=== PATIENT | female | born 1975 | race Caucasian/White ===

== ENCOUNTER → 2018-03-09 15:39 | Outpatient (CLI) | payer OTHER, SELFPAY ==
[2018-03-09 17:37] LABS: Hemoglobin 13.1 g/dl (12.0-15.0); Mean Corp Hgb Conc 32.8 g/gl (32-36); Mean Corpuscular Hgb 29.4 pg (27.0-32.0); Mean Corpuscular Volume 89.9 fL (81-99); Mean Platelet Vol. 9.2 fl (6.2-12.0); Platelet Count 307 K/mm3 (150-450); RBC Distribution Width CV 13.3 % (11.6-14.6); RBC Distribution Width SD 43.4 fl (35.1-43.9); Red Blood Count 4.45 M/mm3 (4.2-5.4); Scan Indicated on CBC? Y/N NO; White Blood Count 8.3 K/mm3 (4.4-11.0)
[2018-03-09 18:01] LABS: Thyroid Stim Hormone (TSH) 1.52 uIU/mL (0.358-3.74)
[2018-03-11 13:45] LABS: Thyroid Peroxidase AB 18 IU/mL (0-34)
== END ==
PROVIDERS: Visit Provider Obstetrics & Gynecology
DX: R63.5 Abnormal weight gain (principal); R61 Generalized hyperhidrosis; N92.6 Irregular menstruation, unspecified
CPT/HCPCS: 36415; 84443; 85027; 86376

== ENCOUNTER → 2020-05-01 | Outpatient (CLI) | payer OTHER, SELFPAY ==
[2020-05-07 20:08] LABS: HPV APTIMA, High Risk Negative (Negative)
== END | disposition home or self-care (01) ==
LOC: LABSPEC 05-02 09:27
PROVIDERS: Visit Provider Student in an Organized Health Care Education/Training Program
DX: Z12.4 Encounter for screening for malignant neoplasm of cervix (principal)
CPT/HCPCS: 87624; 88175; G0145

== ENCOUNTER 2020-08-27 08:24 | Outpatient (RCR) | payer OTHER, SELFPAY | END 2020-09-05 23:59 | LOC: NS 08:24 | PROVIDERS: Visit Provider Student in an Organized Health Care Education/Training Program | DX: Z71.3 Dietary counseling and surveillance (principal); E66.3 Overweight; Z68.27 Body mass index [BMI] 27.0-27.9, adult | CPT/HCPCS: 97802 ==

== ENCOUNTER 2020-09-24 16:30 | Outpatient (RCR) | payer OTHER, SELFPAY | END 2020-10-05 23:59 | LOC: NS 16:30 | PROVIDERS: Visit Provider Student in an Organized Health Care Education/Training Program | DX: Z71.3 Dietary counseling and surveillance (principal); E66.3 Overweight; Z68.27 Body mass index [BMI] 27.0-27.9, adult | CPT/HCPCS: 97803 ==

== ENCOUNTER 2020-10-30 09:00 | Outpatient (RCR) | payer OTHER, SELFPAY | END 2020-11-05 23:59 | LOC: NS 09:00 | PROVIDERS: Visit Provider Student in an Organized Health Care Education/Training Program | DX: Z71.3 Dietary counseling and surveillance (principal); E66.3 Overweight; Z68.27 Body mass index [BMI] 27.0-27.9, adult | CPT/HCPCS: 97803 ==

== ENCOUNTER 2020-12-04 16:00 | Outpatient (RCR) | payer OTHER, SELFPAY | END 2020-12-05 23:59 | LOC: NS 16:00 | PROVIDERS: Visit Provider Student in an Organized Health Care Education/Training Program | DX: Z71.3 Dietary counseling and surveillance (principal); E66.3 Overweight; Z68.27 Body mass index [BMI] 27.0-27.9, adult | CPT/HCPCS: 97803 ==

== ENCOUNTER 2021-01-15 08:57 | Outpatient (RCR) | payer OTHER, SELFPAY | END 2021-02-05 23:59 | LOC: NS 08:57 | PROVIDERS: Visit Provider Student in an Organized Health Care Education/Training Program | DX: Z71.3 Dietary counseling and surveillance (principal); E66.3 Overweight; Z68.27 Body mass index [BMI] 27.0-27.9, adult | CPT/HCPCS: 97803 ==

== ENCOUNTER 2021-02-19 16:55 | Outpatient (RCR) | payer OTHER, SELFPAY | END 2021-02-19 23:59 | disposition home or self-care (01) | LOC: NS 16:55 | PROVIDERS: Visit Provider Student in an Organized Health Care Education/Training Program | DX: Z71.3 Dietary counseling and surveillance (principal); E66.3 Overweight; Z68.27 Body mass index [BMI] 27.0-27.9, adult | CPT/HCPCS: 97803 ==

== ENCOUNTER 2021-08-22 08:14 | Outpatient (CLI) | payer OTHER, SELFPAY ==
--- NOTE | 2021-08-22 08:17 | BI_ITS ---
MAMMOGRAPHY - BILATERAL SCREENING 3-D TOMOSYNTHESIS REASON FOR EXAM: Female, 46 years old. screening mammogram PERTINENT HISTORY: No significant family history. TECHNIQUE: 2-D mammograms and 3-D Tomosynthesis of the breast (s) were performed. CAD was performed. COMPARISON: 05/27/2019 FINDINGS: The breast composition is heterogeneously dense that can obscure small breast masses. Scattered benign calcifications are seen. No dense spiculated masses or suspicious microcalcifications are identified. No architectural distortion is identified. There is no skin thickening or retraction. There has been no significant change since the prior study. BI/SCRN MAMM (CAD)W/RAMOS BILAT IMPRESSION: No mammographic signs of malignancy. Routine yearly mammograms recommended. ASSESSMENT CATEGORY: BIRADS Category 1: Negative. A letter regarding these results will be sent to the patient by the facility within 30 days. FOLLOW UP RECOMMENDATION: Yearly follow up mammogram recommended. (A) Approximately 10% of breast cancers are not detected by mammography. A normal mammogram should not delay biopsy of a clinically suspicious abnormality. Electronically Signed: Maury Young MD at 10:36 EDT ,
== END 2021-08-22 23:59 | disposition home or self-care (01) ==
LOC: OPBI 08:15
PROVIDERS: PCP Family Medicine; Visit Provider Obstetrics & Gynecology
DX: Z12.31 Encounter for screening mammogram for malignant neoplasm of breast (principal); R92.1 Mammographic calcification found on diagnostic imaging of breast
CPT/HCPCS: 77063; 77067

== ENCOUNTER → 2022-01-15 | Outpatient (CLI) | payer OTHER, SELFPAY ==
--- NOTE | 2022-01-15 15:44 | US_ITS ---
STUDY: ULTRASOUND OF THE FEMALE PELVIS - COMPLETE REASON FOR EXAM: Female, 46 years old. AUB LMP: 01/05/2022. TECHNIQUE: Transabdominal and Transvaginal TECHNICAL QUALITY: Adequate. COMPARISON: None. FINDINGS: The uterus is retroverted and is in a midline position. The uterus measures 9.8 cm x 6.4 cm x 5.0 cm. Normal uterine cervix. The endometrium is thickened and measures 20 mm in thickness, and is heterogeneous (striated). The endometrium is thickened and irregular. Underlying polyp should be ruled out. There is no demonstrated endometrial mass. There is no demonstrated myometrial mass. I.U.D. - The patient does not have an I.U.D. The right ovary is visualized. The right ovary measures 3.5 cm x 2.2 cm x 2.5 cm. Multiple follicles are seen. The largest measures 1.3 cm x 1.1 cm x 1.1 cm. There is no visualized right adnexal mass or complex lesion. There is normal arterial and normal venous vascularity. The left ovary is visualized. The left ovary measures 2.9 cm x 2.5 cm x 1.4 cm. Follicles are seen within the ovary. There is no visualized left adnexal mass or complex lesion. There is normal arterial and normal venous vascularity. There is minimal fluid in the cul-de-sac. The pre void volume of the bladder was 340 ml. US/Transvaginal Non- IMPRESSION: Heterogeneous appearance of the uterus with a heterogeneous thickening of the endometrium as described. Endometrial polyps should be ruled out. Follicles are seen in both ovaries. Electronically Signed: Kody Rock MD at 9:11 EDT ,
--- NOTE | 2022-01-15 15:44 | US_ITS ---
STUDY: ULTRASOUND OF THE FEMALE PELVIS - COMPLETE REASON FOR EXAM: Female, 46 years old. AUB LMP: 01/05/2022. TECHNIQUE: Transabdominal and Transvaginal TECHNICAL QUALITY: Adequate. COMPARISON: None. FINDINGS: The uterus is retroverted and is in a midline position. The uterus measures 9.8 cm x 6.4 cm x 5.0 cm. Normal uterine cervix. The endometrium is thickened and measures 20 mm in thickness, and is heterogeneous (striated). The endometrium is thickened and irregular. Underlying polyp should be ruled out. There is no demonstrated endometrial mass. There is no demonstrated myometrial mass. I.U.D. - The patient does not have an I.U.D. The right ovary is visualized. The right ovary measures 3.5 cm x 2.2 cm x 2.5 cm. Multiple follicles are seen. The largest measures 1.3 cm x 1.1 cm x 1.1 cm. There is no visualized right adnexal mass or complex lesion. There is normal arterial and normal venous vascularity. The left ovary is visualized. The left ovary measures 2.9 cm x 2.5 cm x 1.4 cm. Follicles are seen within the ovary. There is no visualized left adnexal mass or complex lesion. There is normal arterial and normal venous vascularity. There is minimal fluid in the cul-de-sac. The pre void volume of the bladder was 340 ml. US/Pelvic (Non ) IMPRESSION: Heterogeneous appearance of the uterus with a heterogeneous thickening of the endometrium as described. Endometrial polyps should be ruled out. Follicles are seen in both ovaries. Electronically Signed: Kody Rock MD at 9:11 EDT ,
== END | disposition home or self-care (01) ==
LOC: US 15:43
PROVIDERS: PCP Family Medicine; Referring Provider Obstetrics & Gynecology; Visit Provider Obstetrics & Gynecology
DX: N93.9 Abnormal uterine and vaginal bleeding, unspecified (principal)
CPT/HCPCS: 76830; 76856

== ENCOUNTER 2022-03-04 09:45 | Day surgery (SDC) | payer OTHER, SELFPAY ==
[2022-03-04] VITALS (7 sets, daily range): BP systolic 95–114; BP diastolic 59–88; PULSE 60–81; RESP 15–18; TEMP 36.1–36.9; O2SAT 97–100; BMI 28.8
[2022-03-04] MEDS: Lactated Ringers 1,000 ML 15 ML IV (10:53)
[2022-03-04 11:01] LABS: Hematocrit 37.9 % (37-47); Hemoglobin 12.1 g/dL (12.0-15.0); Mean Corp Hgb Conc 31.9 g/dL (32-36); Mean Corpuscular Hgb 28.4 pg (27.0-32.0); Mean Platelet Vol. 8.7 fl (6.2-12.0); Platelet Count 309 K/mm3 (150-450); RBC Distribution Width CV 13.5 % (11.6-14.6); RBC Distribution Width SD 44.2 fl (35.1-43.9); Red Blood Count 4.26 M/mm3 (4.2-5.4); White Blood Count 8.4 K/mm3 (4.4-11.0)
--- NOTE | 2022-03-04 11:02 | PCM.HP.BLA ---
History and Physical Date of Admission: 03/04/22 [facility] [address] [place] [address] OFFICE VISIT Date of Service:? 01/08/22 MR#: [id number] Acct: [id number] Name:JB FIGUEROA Rep #: [id number] : 1975 ? ? Provider: Dr. Mable Eduardo, DO Age/Sex:? 46/F ? ? Location: [facility] [place] Status: Signed Intake Vital Signs ? 01/08/2213:59 01/08/2213:59 Height 5 ft 5 ft Weight: 144 lb 6 oz ? BMI 28.2 ? BP 123/85 H ? 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: No Is patient in pain?: No Allergies erythromycin base Adverse Reaction (Verified 01/08/22 13:59) vomitingPenicillins Adverse Reaction (Verified 01/08/22 13:59) hives Medications eflornithine 13.9 % topical cream (Vaniqa) 1 applic topical BID #45 grams 08/14/21 [Rx Confirmed 01/08/22] metformin 500 mg tablet 1,000 mg PO DAILY 08/14/21 [History Confirmed 01/08/22] metformin 500 mg tablet 500 mg PO TID 30 days #90 tabs 08/14/21 [Rx Confirmed 01/08/22] spironolactone 50 mg tablet 50 mg PO DAILY 90 days #90 tabs 08/14/21 [Rx Confirmed 01/08/22] norgestimate 0.25 mg-ethinyl estradiol 35 mcg tablet (Sprintec (28)) 1 tab PO DAILY 30 days #30 tabs 01/08/22 [Rx Confirmed 01/08/22] Post menopausal: No Patient : No : No PFSH Social History? Smoking Status:? Never smoker alcohol intake:? never substance use type:? does not use caffeine:? No what type of physical activity do you participate in:? none seatbelt use:? always do you feel safe at home:? Yes additional social history:? - Nick HPI discuss transition into menopause Details: JB MANSFIELD is a 46 year old who presents for discussion about hot flashes and menopause transition.? She states that since she was seen in August she has developed moderate to severe hot flashes and has also had persistent menses for the last 13 days.? She is not taking control and the last time we discussed was not interested in this however now she has taken this into consideration based on her current symptoms.? She denies history of hypertension blood clots or migraines with aura.? Her blood pressure in the office today is slightly elevated with a systolic of 130 and diastolic of 89.? She is followed by her PCP and states has had cholesterol testing and is up-to-date on her annual exams.? She explains the hot flashes is starting from her head and descending to her toes and occurring multiple times during the day. Pregancy History ? ? ? 4 ? Elective abortions ? Hx Para ? ? ? 3 ? Spontaneous abortions ? ? ? 1 Hx # Term Pregnancies ? Ectopic pregnancies ? Hx # Pregnancies ? Multiple births ? # of living children ? ? ? 3 Past Pregnancies Del. Date Name GA/Weeks Outcome Route Bth Weight Infant Gen Labor Lgth Anesthesia Del Locatn Provider FOB Unknown Hazelyn ? Unknown Doralice ? Unknown Clark ? ROS Const ROS Unobtainable: All systems reviewed & are unremarkable except as noted in H Resp Resp: Reports system reviewed and no additional complaints, except as documented; Denies cough GI GI: Reports as per HPI Psych Psych: Reports system reviewed and no additional complaints, except as documented Exam Const General: cooperative, healthy appearing, comfortable and no acute distress Resp Effort & Inspection: normal respiratory effort Skin General: no rashes or lesions noted Psych Appearance: grossly normal Speech and Movement: speech and movement normal Coding Level of Care Code Off vis,est,level 4 Diagnoses Female climacteric state? N95.1 Abnormal uterine bleeding? N93.9 PCOS (polycystic ovarian syndrome)? E28.2 Assessment and Plan Assessment and Plan (1) Female climacteric state: ?Status:?Acute (2) Abnormal uterine bleeding: ?Status:?Acute (3) PCOS (polycystic ovarian syndrome): ?Status:?Acute ? ? ? Orders: Orders Pelvic (Non ) Today N93.9 - Abnormal uterine and vaginal bleeding, unspecified ? Transvaginal Non- Today N93.9 - Abnormal uterine and vaginal bleeding, unspecified ? Medications: New norgestimate-ethinyl estradiol 0.25-35 mg-mcg (Sprintec (28)) 1 TAB? PO DAILY 30 days 30 tabs 12RF ? ? Plan Plan to start with a pelvic ultrasound to rule out polyp or thickened endometrium.? She is interested in combination hormonal therapy to help both with hot flashes and abnormal bleeding.? The risks benefits and alternatives were discussed with the patient.? This includes blood clots stroke and breast lumps.? Since she is still menstruating I believe that she should benefit from a daily continuous OCP however if bleeding does not stop we will try Aygestin or Megace based on results of the ultrasound. update on plan, plan is to proceed with hysteroscopy D&C to remove possible polyp, place an IUD and start estrogen patch post op for menopause relief. UPDATE- I have seen the patient and performed any clinically relevant updates to the history and physical exam. Mable Eduardo, DO
--- NOTE | 2022-03-04 11:03 | DCINST_ITS ---
Discharge Instructions Diet Discharge Diet: No restrictions Activity Discharge Activity: Return to Normal Activity, May Shower and May Take a Tub Bath (after 1 week) May resume sexual activity in: 1-2 weeks Weight Bearing Status: Weight bearing as tolerated Lifting Restrictions: none Dressing / Incision Call your doctor if you observe: Fever of 101 or Higher, Using more than 1 pad per hour, Shortness of breath and Uncontrolled pain Follow Up Care Please Follow Up With: Mable Eduardo DO When: Call [phone] to schedule appointment. Test Results: Test results from this visit will be discussed in further detail at your follow- up appointment, if applicable. Discharge Plan Admission Primary Reason for Your Visit: hysteroscopy dilation and curettage, placement of mirena IUD Attending Provider: Mable Eduardo Primary Care Provider: Yvon Azevedo Discharge Orders/Prescriptions Prescriptions: New ibuprofen 800 mg tablet 800 mg PO Q8H PRN (Reason: pain) 7 Days Qty: 30 0RF oxycodone-acetaminophen [Percocet] 5-325 mg tablet 1 tab PO Q4H PRN (Reason: pain) 7 Days Qty: 10 0RF Continued metformin 500 mg tablet 500 mg PO TID 30 Days Qty: 90 12RF spironolactone 50 mg tablet 50 mg PO DAILY 90 Days Qty: 90 4RF Discontinued norgestimate-ethinyl estradiol [Sprintec (28)] 0.25-35 mg-mcg tablet 1 tab PO DAILY 30 Days Qty: 30 12RF Referrals / Follow Up: Yvon Azevedo DO [Primary Care Provider] - Disposition Disposition (needs filled in before D/C Order can be placed): Home, Self Care
[2022-03-04 11:07] LABS: Internal QC Validated? YES +Cl - CLEAR BKGD; Pregnancy, Urine Negative Negative
--- NOTE | 2022-03-04 11:15 | EMB_PTH ---
PATIENT: JB BOOGIE LOC: [facility] [place] U#:[id number] AGE/SX: 47/F ROOM: RE03/04/[address]: Dr. Mable Eduardo DO : 1975 BED: DIS: 03/04/2022 SPEC #: [id number] RECD: 03/04/22 14:13 STATUS: KJ SANTA #: [id number] HEIDI: 03/04/22 11:[address]: Mable Eduardo DEPT: SURGICAL PATHOLOGY RECD BY: Christy Roberts ENTERED: 03/05/22 08:03 SP TYPE: ENDOM BX/C PAULHR DR: Dr. Yvon Azevedo DO Tissues: Endometrium, NOS Procedures: Surgery Specimen Level IV HEADER OPERATION: Hysteroscopy, D & C Symphion, resection of uterine polyp, Mirena PRE-OP DIAGNOSIS: Female climacteric state, abnormal uterine bleeding, PCOS TISSUE SUBMITTED: Endometrial curettings MICROSCOPIC DIAGNOSIS Endometrium, curettings: Disordered proliferative endometrium. Chronic endometritis. Rare strips of benign superficial endocervix. AM:charles 03/06/2022 MICROSCOPIC DESCRIPTION Slides are reviewed. GROSS DESCRIPTION Received in fixative is one container labeled with the patient's name and designated endometrial curettings. The specimen consists of multiple fragments of hernandez-pink to hemorrhagic soft tissue that in aggregate measure 5 x 3 x 0.3 cm. The specimen is totally submitted in two cassettes. / SALAZAR:charles 03/05/2022 TC:3 CPT: 74430
[2022-03-04] MEDS: Lidocaine 1% (20 ml mdv) 20 ML Vial (11:40)
--- NOTE | 2022-03-04 13:55 | PCM.OP.BLANK ---
Operative Report Date of Procedure: 03/04/22 preoperative diagnosis:menorrhagia, thickened endometrium Postoperative diagnosis:menorrhagia, thickened endometrium Surgeon: Dr. Mable Eduardo DO surgery: hysteroscopy, syphion dilation and curettage, placement of mirena IUD EBL: minimal urine output: 30cc findings: atrophic appearing uterus specimens removed: endometrial curettings Details of the procedure: Patient was prepped and draped in a normal sterile fashion under MAC anesthesia. A weighted speculum was placed in the vagina and the anterior lip of the cervix was grasped with a single-tooth tenaculum. A paracervical block was placed with 1% lidocaine. Cervix was progressively dilated to allow passage of a 5 mm hysteroscope. The lining was fully visualized and noted to have an atrophic appearing lining . Uterine sounded to 10 cm. Curettage was performed using the syphion device and specimen was sent to pathology. The mirena IUD was inserted to the fundus and the strings were trimmed at 3 cm from the cervix. All instruments were removed from the vagina and excellent hemostasis was noted. Patient was awoken and taken to recovery in stable condition. Multi Select Codes Urinary/Genital Urinary/Genital CPT Codes: 45129 Hysteroscopy,EMC, Polypectomy and Other Procedure See Report (placement of mirena IUD )
== END 2022-03-04 13:11 | disposition home or self-care (01) ==
LOC: SDC 09:47 → AC 09:48
PROVIDERS: PCP Family Medicine; Referring Provider Obstetrics & Gynecology; Visit Provider Obstetrics & Gynecology
PROC: 0UB98ZZ Excision of Uterus, Via Natural or Artificial Opening Endoscopic (ICD-10-PCS; CPT 58558; principal; 2022-03-04 11:00)
DX: N71.1 Chronic inflammatory disease of uterus (principal); Z30.430 Encounter for insertion of intrauterine contraceptive device; N85.8 Other specified noninflammatory disorders of uterus; E28.2 Polycystic ovarian syndrome; Z79.899 Other long term (current) drug therapy
CPT/HCPCS: 58558; 58300; 81025; 85027; 88305; J7120; J2405

== ENCOUNTER 2022-04-07 15:51 | Outpatient (CLI) | payer OTHER, SELFPAY ==
--- NOTE | 2022-04-07 15:52 | US_ITS ---
INDICATION: check placement of IUD EXAMINATION: Ultrasound US Pelvis Non-OB Complete TECHNIQUE: Transabdominal and transvaginal pelvic ultrasound was performed. Grayscale, spectral waveform, and color flow Doppler evaluation of the adnexa. COMPARISON: Ultrasound pelvis 01/15/2022. FINDINGS: UTERUS: Retroverted. The uterus measures 10.3 x 7.1 x 5.8 cm. There is no uterine mass. The endometrial stripe measures 4 mm in AP diameter which is within normal limits. Nabothian cysts. Intrauterine device in place. RIGHT OVARY: Non-enlarged, normal echogenicity. There is normal arterial inflow and venous outflow present in the right ovary. Echogenic focus adjacent to right ovary, may represent calcification. LEFT OVARY: Multiple prominent follicles in the left ovary measuring up to 2.3 cm. Non-enlarged, normal echogenicity. There is normal arterial inflow and venous outflow present in the left ovary. FREE FLUID: None. US/Transvaginal Non- IMPRESSION: Intrauterine device in position. Electronically Signed: Fransisco Hoang MD at 4:32 EDT ,
--- NOTE | 2022-04-07 15:52 | US_ITS ---
INDICATION: check placement of IUD EXAMINATION: Ultrasound US Pelvis Non-OB Complete TECHNIQUE: Transabdominal and transvaginal pelvic ultrasound was performed. Grayscale, spectral waveform, and color flow Doppler evaluation of the adnexa. COMPARISON: Ultrasound pelvis 01/15/2022. FINDINGS: UTERUS: Retroverted. The uterus measures 10.3 x 7.1 x 5.8 cm. There is no uterine mass. The endometrial stripe measures 4 mm in AP diameter which is within normal limits. Nabothian cysts. Intrauterine device in place. RIGHT OVARY: Non-enlarged, normal echogenicity. There is normal arterial inflow and venous outflow present in the right ovary. Echogenic focus adjacent to right ovary, may represent calcification. LEFT OVARY: Multiple prominent follicles in the left ovary measuring up to 2.3 cm. Non-enlarged, normal echogenicity. There is normal arterial inflow and venous outflow present in the left ovary. FREE FLUID: None. US/Pelvic (Non ) IMPRESSION: Intrauterine device in position. Electronically Signed: Fransisco Hoang MD at 4:32 EDT ,
== END 2022-04-07 23:59 | disposition home or self-care (01) ==
LOC: US 15:52
PROVIDERS: PCP Family Medicine; Referring Provider Obstetrics & Gynecology; Visit Provider Obstetrics & Gynecology
DX: Z30.431 Encounter for routine checking of intrauterine contraceptive device (principal); T83.32XA Displacement of intrauterine contraceptive device, initial encounter
CPT/HCPCS: 76830; 76856

== ENCOUNTER → 2022-05-20 | Outpatient (CLI) | payer OTHER, SELFPAY ==
[2022-05-20 14:38] LABS: Erythrocyte Sedimentation Rate 7 mm/hr (0-30)
[2022-05-20 14:40] LABS: Hematocrit 41.8 % (37-47); Hemoglobin 13.4 g/dL (12.0-15.0); Mean Corp Hgb Conc 32.1 g/dL (32-36); Mean Corpuscular Volume 87.4 fL (81-99); Mean Platelet Vol. 8.5 fl (6.2-12.0); Platelet Count 320 K/mm3 (150-450); RBC Distribution Width CV 13.8 % (11.6-14.6); RBC Distribution Width SD 43.9 fl (35.1-43.9); Red Blood Count 4.78 M/mm3 (4.2-5.4); White Blood Count 8.9 K/mm3 (4.4-11.0)
[2022-05-20 15:41] LABS: CRP < 2.90 mg/L (0.0-3.0); Rheumatoid Factor < 10.0 IU/mL (<15); Uric Acid 4.7 mg/dL (2.6-6.0)
[2022-05-23 10:12] LABS: ANTINUCLEAR ANTIBODIES DIRECT Negative (Negative)
== END | disposition home or self-care (01) ==
LOC: LAB 14:02
PROVIDERS: PCP Family Medicine; Referring Provider Orthopaedic Surgery Hand Surgery; Visit Provider Orthopaedic Surgery Hand Surgery
DX: G56.03 Carpal tunnel syndrome, bilateral upper limbs (principal)
CPT/HCPCS: 36415; 84550; 85027; 85652; 86038; 86140; 86431

== ENCOUNTER → 2022-08-28 | Outpatient (CLI) | payer OTHER, SELFPAY ==
--- NOTE | 2022-08-28 08:22 | BI_ITS ---
MAMMOGRAPHY - BILATERAL SCREENING REASON FOR EXAM: Female, 47 years old. Routine annual screening examination. PERTINENT HISTORY: Grandmother with breast cancer. TECHNIQUE: Digital bilateral breast ramos (3D mammographic acquisition) in the CC and MLO projections. 2-D mediolateral oblique (MLO) and craniocaudad (CC) views of both breasts were obtained. CAD: Full Field Digital Mammography with Computer Added Detection was performed. COMPARISON: Comparison is made with prior study dated August 22, 2021. FINDINGS: Breast Composition: There are scattered areas of fibroglandular density. There are no dominant masses or suspicious calcifications. No other significant abnormalities are identified. There has been no significant change since the prior study. BI/SCRN MAMM (CAD)W/RAMOS BILAT IMPRESSION: Stable bilateral screening mammogram. Yearly follow-up mammogram recommended. (A) ASSESSMENT CATEGORY: BIRADS Category 1: Negative. A letter regarding these results will be sent to the patient by the facility within 30 days. Approximately 10% of breast cancers are not detected by mammography. A normal mammogram should not delay biopsy of a clinically suspicious abnormality. [id number] Electronically Signed: Kody Rock MD at 9:46 EDT ,
== END | disposition home or self-care (01) ==
LOC: OPBI 08:19
PROVIDERS: PCP Family Medicine; Visit Provider Obstetrics & Gynecology
DX: Z12.31 Encounter for screening mammogram for malignant neoplasm of breast (principal)
CPT/HCPCS: 77063; 77067

== ENCOUNTER 2022-10-03 07:30 | Outpatient (RCR) | payer OTHER, SELFPAY ==
--- NOTE | 2022-09-03 08:25 | HP.PTEVAL_ITS ---
Patient's Visit Information JB MANSFIELD is a 47 year old F referred to Physical Therapy by Dr. Fransisco Rojas MD with a diagnosis of Left Hip Bursitis. Date of Evaluation: 09/03/22 Physical Therapist: Jackelyn Bowling DPT - Visit Plan Frequency: 2x /Week Duration: 4 Weeks Plan: Posterior Chain Strengthening, ITBand and Hamstring Roll Out, Ultrasound as modality of choice. HEP Given IE: Bridge, hamstring stretch, piriformis, clams, prone hip extension with bent knee - Subjective Patient reports that she fell in June of last year and has had 3 occurrences of hip bursitis since then, this time it has not gone away. The first time she had an injection- the second it went away mostly and then in June she was taking a walk and it flared and now won't go away. Any time she tries to strengthen the hip it flares. She can't walk more than 3 miles at this point. She went to [facility]- last year she had x-rays which looked okay, she did not have an injection this time and did PT this time. Did not do PT last time. Normally she is just a walker for exercise- 3-4 miles 2-3x a week between stroll and good pace. 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 Pain is located on the lateral hip- it radiates down the posterior thigh and wraps around the back of the knee. It feel tight and a band that tight inside the leg. No pain past the knee- no back pain. No N/T. Describes the pain as achy- sharp if she is sta nding. Worst: 12/15 Agg: sitting to standing and back in June any time laying on her left side, Best: 07/18, Eases: ice and advil. She has tried hip abduction, clams, Figure 4 stretch- she does feel like they help but just not going away. Sleep: not she can lay on her on left side- feels like she is laying on a ball- not disturbed at this point. No issues with her hips prior to June. PMHx: PCOS Meds: metformin, spironolactone - Objective Posture: FH, RS- can correct but does not maintain in sitting. Gait: mild pelvic translation. Stairs: asc: recip without HR- no deviation noted- desc: recip no HR- moderately uncontrolled. HR/TR: able without UE A. SLS: 15 sec mild pelvic translation- does report more instability compared to right. ROM: Lumbar: WFL, Hip: WFL pain with Flexion to 120 degrees ER at end range, Knee/Ankle: WFL. Palpation: tender along insertion of gluts on the left, ITBand, lateral hamstrings. Strength: Core: fair, Hip: Flexion: 4/5 with pain, Extn: 4/5 with pain, Abd: 4-/5 with pain, IR: 4+/5 no pain, ER: 3+/5 with pain, Knee: Flexion: 4/5 with pain, Extn: 4+/5 no pain, Ankle: 5/5. Special Test: Pelvic Alignment: WFL, LLD: negative. Flex: HS: moderate, Gastroc: moderate, Piriformis: moderate - Special Tests L Hip Scour: Negative L Hip Quadrant - Intraarticular Pathology: Negative L Hip RAMESH - Intraarticular Pathology: Positive L Hip FADDIR - Labrum: Negative L Hip Impingement Provocation - Labrum: Negative L Hip Trendelenberg - Glut Medius: Positive L Hip Meg - IT Band: Positive - Balance/Special Test Scores Lower Extremity Functional Score: 57 - Goals Goal 1:: Patient will be I with HEP and progression Goal Time Frame: 4-6 Weeks Goal 2:: Patient will SLS without pelvic translation Goal Time Frame: 4-6 Weeks Goal 3:: Patient will maintain proper posture t/o tx session to demo increased core s/s Goal Time Frame: 4-6 Weeks Goal 4:: Patient will demo full AROM of the left hip without pain Goal Time Frame: 4-6 Weeks Goal 5:: Patient will report 80% improvement Goal Time Frame: 4-6 Weeks - Rehabilitation Potential Physical Therapy Diagnosis: Patient presents with hypomobility- she has decreased LE and core strength/stabilization, pain free ROM, proprioception, flex and muscular endurance leading to decreased posture and increased pain with ADL's Rehabilitation Potential: Good - Anticipated Interventions Patient/Client Instruction: Educate patient on: Benefits of Fitness Program Therapeutic Exercise to Include: Strength training, Endurance training, Balance training, Coordination, Agility training, Body mechanics, Postural training, Flexibilty training, Gait and locomotor training, Neuromotor development, Dynamic Lumbar Stabilization, Scapular Strength/Stabilization For the Purpose of:: To improve muscle performance and motor function Manual Therapy Techniques to Include: Soft tissue mobilization For the Purpose of:: To increase oxygenation perfusion TENS: Yes Cryotherapy (ice pack, ice massage): Yes Thermo therapy (hot pack): Yes Ultrasound (thermal/non thermal): Yes For the Purpose of:: To improve nutrient delivery to tissue Thank you for the opportunity to evaluate your patient. For Medicare and Medicare HMO plans, please review the plan of care and approve it. It will need to be FAXED BACK to us at [phone] for Medicare purposes. For Medicare only, by signing this I certify the plan of care. Please let me know if there are questions or concerns regarding this plan of care. Physician Signature: Date:
--- NOTE | 2022-10-03 08:30 | HP.PTDCSUM ---
It has been my pleasure to treat JB MANSFIELD referred by Dr. Fransisco Rojas MD, with the diagnosis of Left Hip Bursitis for a total of 11 visit(s). Discharge Date: Please see the following information for a summary of their discharge status. Subjective: Patient reports 80% improvement and that she feels she can continue the ex's on her own now. States she is happy with her progress and understands the importance of continuing the ex's. L hip Pain Intensity (Out of 10): 0 % Improvement: 80 Objective/Function: PATIENT WAS SEEN TODAY FOR RE-ASSESSMENT OF PROGRESS TOWARD THE SET PT GOALS AND THE NEED FOR FURTHER PHYSICAL THERAPY VS READINESS FOR DISCHARGE. UPON EXAM TODAY ALL GOALS HAVE BEEN MET AND PATIENT IS INDEP WITH A HEP. MILD L HIP EXTERNAL ROTATOR TIGHTNESS COMPARED TO LEFT EVIDENT WITH TESTING TODAY BUT INDEP WITH STRETCHING. Goal 1:: Patient will be I with HEP and progression Goal Progress: Goal Met Goal 2:: Patient will SLS without pelvic translation Goal Progress: Goal Met Goal 3:: Patient will maintain proper posture t/o tx session to demo increased core s/s Goal Progress: Goal Met Goal 4:: Patient will demo full AROM of the left hip without pain Goal Progress: Goal Met Goal 5:: Patient will report 80% improvement Goal Progress: Goal Met Plan: D/C TO INDEP EX. PATIENT AGREEABLE. If there are questions or concerns regarding this patient's physical therapy, please feel free to call me at [phone]. Thank you for the referral of this patient. Sincerely, Hannah Garcia, PT, Cert MDT Balance/Gait/Functional tests - Balance/Special Test Scores Lower Extremity Functional Score: 69
== END 2022-10-03 08:54 | disposition home or self-care (01) ==
LOC: PT 07:30
PROVIDERS: PCP Family Medicine; Referring Provider Orthopaedic Surgery; Visit Provider Orthopaedic Surgery
DX: M70.62 Trochanteric bursitis, left hip (principal)
CPT/HCPCS: 97110; 97162; 97164

== ENCOUNTER → 2022-12-20 | Outpatient (CLI) | payer OTHER, SELFPAY ==
--- NOTE | 2022-12-20 08:00 | MRI_ITS ---
EXAM: MR LEFT LOWER EXTREMITY WITHOUT INTRAVENOUS CONTRAST, HIP CLINICAL INDICATION: Hip pain TECHNIQUE: Multiplanar and multisequence MR images of the left hip without intravenous contrast. COMPARISON: No relevant prior studies available. FINDINGS: TENDONS: FLEXORS: Unremarkable. Intact. EXTENSORS/HAMSTRING: Unremarkable. Intact. ABDUCTORS: Unremarkable. Intact. ADDUCTORS: Unremarkable. Intact. ROTATORS: Unremarkable. Intact. MUSCLES: Unremarkable. Normal bulk and signal. FLUID: No joint effusion. No trochanteric bursitis. LABRUM: No evidence of a tear on this non-arthrogram exam. CARTILAGE: Unremarkable. Articular cartilage intact. BONES/JOINTS: Unremarkable. No femoral neck fracture. No avascular necrosis of the femoral head. No sacral insufficiency fracture. No suspicious bone marrow signal alteration. OTHER SOFT TISSUES: Unremarkable. MRI/Lower Ext Joint Only (Routine) IMPRESSION: Unremarkable MRI of the left hip. Electronically Signed: Sandi Bates MD at 23:55 EDT Reading Location ID and State: [id number] / Tel , Service support ,
== END | disposition home or self-care (01) ==
LOC: MRI 07:43
PROVIDERS: PCP Family Medicine; Referring Provider Orthopaedic Surgery; Visit Provider Orthopaedic Surgery
DX: M70.62 Trochanteric bursitis, left hip (principal)
CPT/HCPCS: 73721

== ENCOUNTER 2023-03-17 16:30 | Outpatient (RCR) | payer OTHER, SELFPAY ==
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
== END 2023-03-17 19:00 | disposition home or self-care (01) ==
LOC: PT 16:30
PROVIDERS: PCP Family Medicine; Referring Provider Physician Assistant Surgical; Visit Provider Physician Assistant Surgical
DX: M54.12 Radiculopathy, cervical region (principal); M70.62 Trochanteric bursitis, left hip
CPT/HCPCS: 97110; 97161; 97164; 97530

== ENCOUNTER 2023-05-14 06:55 | Day surgery (SDC) | payer OTHER, SELFPAY ==
[2023-05-14] VITALS (7 sets, daily range): BP systolic 93–132; BP diastolic 60–81; PULSE 70–94; RESP 16–18; TEMP 36.1–36.9; O2SAT 97–100; BMI 28.2
[2023-05-14 07:17] LABS: Internal QC Validated? YES +Cl - CLEAR BKGD; Pregnancy, Urine Negative Negative
[2023-05-14 07:19] LABS: Record Kit Lot#,Urine Preg HCG0000667200
[2023-05-14] MEDS: Lactated Ringers 1,000 ML 15 ML IV (07:20)
--- NOTE | 2023-05-14 08:09 | HP.PCM_ITS ---
[facility] - General General Date of Admission: 05/14/23 Date of Service: 05/14/23 Chief Complaint: Screening colonoscopy HPI Narrative JB MANSFIELD, is a 48 F who presents today for screening colonoscopy. She is significant past other than PCOS. She is not having any chest pain or shortness of breath. She does not have any nausea, vomiting or diarrhea. All other 16 review systems are negative except those pertinent positive mentioned in the [facility] Medical History Arthritis History of steroid therapy IUD (intrauterine device) in place Non-smoker Osteoarthritis of hands, bilateral PCOS (polycystic ovarian syndrome) Home Medications levonorgestrel 21 mcg/24 hours (8 yrs) 52 mg intrauterine device (Mirena) 1 device intrauterine ONCE 03/19/22 [History Last Taken Unknown] metformin 500 mg tablet 500 mg PO TID 30 days #90 tabs 09/03/22 [Rx Last Taken Unknown] spironolactone 50 mg tablet 50 mg PO DAILY 90 days #90 tabs 09/03/22 [Rx Last Taken Unknown] Allergy/AdvReac Type Severity Reaction Status Date / Time erythromycin base AdvReac vomiting Verified 05/14/23 07:17 Penicillins AdvReac hives Verified 05/14/23 07:17 Family History (Updated 03/16/23 @ 09:46 by Payton Nicole) Sister Thyroid disorder Father Diabetes Surgical History S/P dilation and curettage (~03/04/22) Social History (Updated 03/16/23 @ 09:46 by Patyon Nicole) household members: spouse current occupational status: employed Smoking Status: Never smoker alcohol intake: never substance use type: does not use caffeine: No what type of physical activity do you participate in: walking frequency: 3-4 times per week seatbelt use: always do you feel safe at home: Yes additional social history: - Nick ROS Review of Systems ROS Unobtainable: other Constitutional Constitutional: Denies fatigue, fever(s), poor appetite, weight gain or weight loss ENT HEENT: Denies mouth lesions Cardiovascular Cardiovascular: Denies abdominal bloating, abdominal edema or abdominal pain Respiratory/Chest Respiratory/Chest: Denies change in mental status, change in phlegm color, chest congestion or chest tightness Gastrointestinal Gastrointestinal: Denies belching, bloating, change in bowel habits, change in stool character, chewing difficulty, coffee ground emesis, constipation, cramping, diarrhea, dyspepsia, dysphagia, early satiety, excessive flatus, fecal incontinence, heartburn, hematemesis, hematochezia, hemorrhoids, loose stools, melena, nausea, odynophagia, rectal bleeding, tenesmus, vomiting or weight changes Genitourinary Genitourinary: Denies abdominal discomfort, burning urination or itching Musculoskeletal Musculoskeletal: Reports as per HPI; Denies muscle weakness or myalgias Integumentary Integumentary: Denies jaundice Neurologic Neurologic: Denies lack of coordination or weakness Psychiatric Psychiatric: Denies confusion, depression, memory loss, mood swings, paranoia or suicidal ideation Endocrine Endocrinology: Denies systems reviewed and no addt'l complaints, except as documented Hematologic/Lymphatic Hematologic/Lymphatic: Denies anemia, easy bleeding, easy bruising or lymphadenopathy Allergic/Immunologic Allergic/Immunologic: Denies systems reviewed and no addt'l complaints, except as documented Vital Signs Vital Signs Vital Signs: 05/14/23 07:18 05/14/23 07:18 Temperature 97 F L Temperature Source Temporal Pulse Rate 74 Respiratory Rate 16 Respiratory Pattern Normal Blood Pressure 132/81 H Blood Pressure Mean 98 Blood Pressure Source Monitor Blood Pressure Position Semi-Fowlers Blood Pressure Location Right Arm Pulse Ox 99 Oxygen Delivery Method Room Air Weight Weight: 144 lb 9.972 oz Body Mass Index (BMI) 28.2 Physical Exam Const alert General Appearance: cooperative Orientation / Consciousness: oriented to person HEENT hearing grossly normal bilaterally Head and Scalp: normal to inspection Face and Sinus: face symmetric Nose: external nose normal Mouth: oral and palatal mucosa normal Eyes conjunctivae normal General Eye: normal appearance of both eyes Neck full ROM General: normal visual inspection Lymph Lymphatic: no lymphadenopathy noted Chest inspection of chest normal and palpation of chest normal Chest: symmetrical chest wall rise Resp normal respiratory effort Effort and Inspection: able to speak in complete sentences Cardio regular rate GI non-distended Percussion: normal to percussion Rectal Exam: deferred Neuro Speech: speech normal Gait (Neuro): normal gait Results Lab / Micro Data Labs: Laboratory Results - last 24 hr 05/14/23 07:10: Urine Test Negative Assessment & Plan Assessment/Plan (1) Encounter for screening for malignant neoplasm of colon: PLAN: She was explained alternatives, risk, benefits including not withstanding bleeding, infection, sepsis, perforation, need for emergent surgery and . She will have an ASA of 2.
--- NOTE | 2023-05-14 08:36 | OP.CCLET_ITS ---
05/14/2023 Yvon Azevedo [id number] [place] [address] Re : Colonoscopy procedure for Farzaneh Dill Dear Dr. Azevedo This procedure was performed on May. My impressions and recommendations are as follows: Impressions : - The entire examined colon is normal on direct and retroflexion views. - No specimens collected. Recommendations : - Discharge patient to home. - Resume previous diet. - Continue present medications. - Repeat colonoscopy in 10 years for screening purposes. My findings are described in the full procedure note, which is enclosed. If I can be of further assistance, please feel free to contact me at . Sincerely, Irving Boyd, 05/14/2023 8:35:42 AM This report has been signed electronically.
--- NOTE | 2023-05-14 08:36 | OP.COLON_ITS ---
Patient Name: Farzaneh Dill Procedure Date: 05/14/2023 8:14 AM Date of : 1975 Age: 48 Procedure: Colonoscopy Indications: Screening for colorectal malignant neoplasm Providers: Irving Boyd DO Referring MD: Irving Body DO Medicines: Monitored Anesthesia Care Patient Profile: This is a 48 year old female. Refer to note in patient chart for documentation of history and physical. Last Colonoscopy: none. The patient's first colonoscopy is today. Complications: No immediate complications. Procedure: Pre-Anesthesia Assessment: - Prior to the procedure, a History and Physical was performed, and patient medications and allergies were reviewed. The patient is competent. The risks and benefits of the procedure and the sedation options and risks were discussed with the patient. All questions were answered and informed consent was obtained. Patient identification and proposed procedure were verified by the physician in the pre-procedure area. Mental Status Examination: alert and oriented. Airway Examination: normal oropharyngeal airway and neck mobility. Respiratory Examination: clear to auscultation. CV Examination: normal. Prophylactic Antibiotics: The patient does not require prophylactic antibiotics. Prior Anticoagulants: The patient has taken no anticoagulant or antiplatelet agents. ASA Grade Assessment: II - A patient with mild systemic disease. After reviewing the risks and benefits, the patient was deemed in satisfactory condition to undergo the procedure. The anesthesia plan was to use monitored anesthesia care (MAC). Immediately prior to administration of medications, the patient was re-assessed for adequacy to receive sedatives. The heart rate, respiratory rate, oxygen saturations, blood pressure, adequacy of pulmonary ventilation, and response to care were monitored throughout the procedure. The physical status of the patient was re-assessed after the procedure. After I obtained informed consent, the scope was passed under direct vision. Throughout the procedure, the patient's blood pressure, pulse, and oxygen saturations were monitored continuously. The Colonoscope was introduced through the anus and advanced to the cecum, identified by appendiceal orifice and ileocecal valve. The colonoscopy was performed without difficulty. The patient tolerated the procedure well. The quality of the bowel preparation was adequate. The ileocecal valve, appendiceal orifice, and rectum were photographed. Scope In: 8:20:29 AM Scope Withdrawal Time 0 hours 5 minutes 28 seconds Scope Out: 8:30:58 AM Total Procedure Duration Time 0 hours 10 minutes 29 seconds Findings: The perianal and digital rectal examinations were normal. The entire examined colon appeared normal on direct and retroflexion views. Impression: - The entire examined colon is normal on direct and retroflexion views. - No specimens collected. Recommendation: - Discharge patient to home. - Resume previous diet. - Continue present medications. - Repeat colonoscopy in 10 years for screening purposes. Procedure Code(s): --- Professional --- G0121, Colorectal cancer screening; colonoscopy on individual not meeting criteria for high risk CPT copyright 2021 [employer]. All rights reserved. The codes documented in this report are preliminary and upon certified medical coder review may be revised to meet current compliance requirements. Irving Boyd DO 05/14/2023 8:35:42 AM This report has been signed electronically. Number of Addenda: 0 Note Initiated On: 05/14/2023 8:14 AM
== END 2023-05-14 09:12 | disposition home or self-care (01) ==
LOC: EN 06:56 → AC 06:57
PROVIDERS: Anesthesiology; PCP Family Medicine; Referring Provider Family Medicine; Visit Provider Internal Medicine Gastroenterology
PROC: 0DJD8ZZ Inspection of Lower Intestinal Tract, Via Natural or Artificial Opening Endoscopic (ICD-10-PCS; CPT 45378; principal; 2023-05-14 07:55)
DX: Z12.11 Encounter for screening for malignant neoplasm of colon (principal); Z79.84 Long term (current) use of oral hypoglycemic drugs; Z79.899 Other long term (current) drug therapy
CPT/HCPCS: 45378; 81025; J7120

== ENCOUNTER → 2023-09-14 | Outpatient (CLI) | payer OTHER, SELFPAY ==
--- NOTE | 2023-09-14 07:37 | BI_ITS ---
MAMMOGRAPHY - BILATERAL SCREENING REASON FOR EXAM: Female, 48 years old. Routine annual screening examination. PERTINENT HISTORY: Grandmother with breast cancer. TECHNIQUE: Digital bilateral breast ramos (3D mammographic acquisition) in the CC and MLO projections. 2-D mediolateral oblique (MLO) and craniocaudad (CC) views of both breasts were obtained. CAD: Full Field Digital Mammography with Computer Added Detection was performed. COMPARISON: Comparison is made with prior study August 28, 2022 and August 22, 2021. FINDINGS: Breast Composition: There are scattered areas of fibroglandular density. There are no dominant masses or suspicious calcifications. No other significant abnormalities are identified. There has been no significant change since the prior study. BI/SCRN MAMM (CAD)W/RAMOS BILAT IMPRESSION: Stable bilateral screening mammogram. Yearly follow-up mammogram recommended. (A) ASSESSMENT CATEGORY: BIRADS Category 1: Negative. A letter regarding these results will be sent to the patient by the facility within 30 days. Approximately 10% of breast cancers are not detected by mammography. A normal mammogram should not delay biopsy of a clinically suspicious abnormality. [id number] Electronically Signed: Kody Rock MD at 8:46 EDT ,
== END | disposition home or self-care (01) ==
LOC: OPBI 07:37
PROVIDERS: PCP Family Medicine; Referring Provider Obstetrics & Gynecology; Visit Provider Obstetrics & Gynecology
DX: Z12.31 Encounter for screening mammogram for malignant neoplasm of breast (principal)
CPT/HCPCS: 77063; 77067

== ENCOUNTER → 2023-12-21 | Outpatient (CLI) | payer OTHER, SELFPAY ==
[2023-12-21 15:39] LABS: Vitamin B12 373 pg/mL (211-911)
[2023-12-21 15:49] LABS: Cholesterol 229 mg/dL (200); High Density Lipoprotein 45 mg/dL; Thyroid Stim Hormone (TSH) 1.87 uIU/mL (0.358-3.74); Triglycerides 222 mg/dL; Very Low Density Lipoprotein 44 mg/dL (5-40)
== END | disposition home or self-care (01) ==
LOC: BFHLAB 13:14
PROVIDERS: PCP Family Medicine; Referring Provider Family Medicine; Visit Provider Family Medicine
DX: Z00.00 Encounter for general adult medical examination without abnormal findings (principal); Z51.81 Encounter for therapeutic drug level monitoring
CPT/HCPCS: 36415; 80061; 82607; 84443

== ENCOUNTER → 2024-09-09 | Outpatient (CLI) | payer OTHER, SELFPAY | END | disposition home or self-care (01) | LOC: LABSPEC 16:05 | PROVIDERS: PCP Family Medicine; Referring Provider Obstetrics & Gynecology; Visit Provider Obstetrics & Gynecology | DX: Z12.4 Encounter for screening for malignant neoplasm of cervix (principal) | CPT/HCPCS: 87624; 88175; G0145 ==

== ENCOUNTER → 2024-09-20 | Outpatient (CLI) | payer OTHER, SELFPAY ==
--- NOTE | 2024-09-20 12:34 | EKG12_ITS ---
Test Reason : MEDS Blood Pressure : */* mmHG Vent. Rate : 77 BPM Atrial Rate : 77 BPM P-R Int : 126 ms QRS Dur : 78 ms QT Int : 388 ms P-R-T Axes : 20 51 44 degrees QTcB Int : 439 ms Normal sinus rhythm Normal ECG Confirmed by Chance Massey ([id number]), associate entertainment editor ROSSY VANN ([id number]) on 09/21/2024 10:04:54 AM Referred By: Mable Eduardo Confirmed By: Chance Massey
--- NOTE | 2024-09-20 13:00 | BI_ITS ---
EXAM: SCRN MAMM (CAD)W/RAMOS BILAT DATE: 09/20/2024 CLINICAL HISTORY: F, Age 49 y/o , SCREENING FOR BREAST CANCER Grandmother with breast cancer. BREAST CANCER RISK ASSESSMENT: Not assessed. TECHNIQUE: Bilateral screening digital breast tomosynthesis with 2D and 3D images. Computer aided detection. COMPARISON: Prior exam(s) dated September 14, 2023.. FINDINGS: TISSUE DENSITY: The breast tissue is heterogenously dense, which may obscure small masses. Bilateral Breast Mammographic Findings: No significant masses, calcifications or other abnormalities are identified. BI/SCRN MAMM (CAD)W/RAMOS BILAT IMPRESSION: Right Breast: BIRADS 1 NEGATIVE. Left Breast: BIRADS 1 NEGATIVE. OVERALL FINAL ASSESSMENT: BIRADS 1 NEGATIVE RECOMMENDATION: Routine annual follow-up in 1 Year A letter with findings and recommendations will be mailed to the patient. Reading Location: [place] [id number]
== END | disposition home or self-care (01) ==
PROVIDERS: PCP Family Medicine; Referring Provider Obstetrics & Gynecology; Visit Provider Obstetrics & Gynecology
DX: Z12.31 Encounter for screening mammogram for malignant neoplasm of breast (principal); N95.1 Menopausal and female climacteric states; E66.9 Obesity, unspecified
CPT/HCPCS: 77063; 77067; 93005